=== PATIENT | male | born 1960 | race Caucasian/White ===

== ENCOUNTER 2017-04-20 13:44 | Emergency (ER) | payer OTHER ==
[~2017-04-20] VITALS: Ht 185.4 cm; Wt 129.2 kg
[~2017-04-20 13:44] MED LIST: ALTACE10 MG PO; BACTROBAN22 GM TOP; CARDURA8 MG PO; COREG25 MG PO; FENOFIBRIC ACID35 MG PO; GLUCOPHAGE500 MG PO; HALFPRIN81 MG PO; HUMALOG KW200 UNIT/1 SUBCUT; HYDRALAZINE HCL50 MG PO; KLOR-CON M1010 MEQ PO; LANTUS100 UNIT/1 SUBCUT; LASIX40 MG PO; LEXAPRO20 MG PO; LIPITOR80 MG PO; NORVASC2.5 MG PO; VITAMIN D-32000 UNIT PO
== END 2017-04-20 14:35 | disposition short-term general hospital (02) ==
LOC: ER 13:44
DX: L02.413 Cutaneous abscess of right upper limb (principal)

== ENCOUNTER → 2017-04-27 | Outpatient (CLI) | payer OTHER | END | disposition short-term general hospital (02) | LOC: CLSURG 08:27 | DX: Z48.817 Encounter for surgical aftercare following surgery on the skin and subcutaneous tissue (principal) ==